=== PATIENT | male | born 1995 | race Caucasian/White ===

== ENCOUNTER 2019-08-13 19:56 | Emergency (ER) | payer OTHER ==
[~2019-08-13] VITALS: Ht 175.2 cm; Wt 101.6 kg
[~2019-08-13 19:56] MED LIST: AMOXICILLIN500 MG PO; ATARAX25 MG PO; CLINDAMYCIN150 MG PO; PREDNISONE10 MG PO; VICODIN 5/500 505 MG PO; ZOVIRAX800 MG PO
[2019-08-13 19:58] VITALS: BP 148/70
[2019-08-13] MEDS ORDERED: PREDNISONE50 MG PO (21:26)
== END 2019-08-13 21:48 | disposition home or self-care (01) ==
LOC: ED 19:56
DX: M71.521 Other bursitis, not elsewhere classified, right elbow (principal)

== ENCOUNTER 2023-03-03 13:59 | Emergency (ER) | payer BC ==
[~2023-03-03] VITALS: Ht 175.2 cm; Wt 122.5 kg
[~2023-03-03 13:59] MED LIST changes: +PREDNISONE50 MG PO
[2023-03-03 14:11] VITALS: BP 138/89
[2023-03-03] MEDS ORDERED: VIBRAMYCIN100 MG PO (14:42)
== END 2023-03-03 14:49 | disposition home or self-care (01) ==
LOC: ED 13:59
DX: J02.9 Acute pharyngitis, unspecified (principal); R21 Rash and other nonspecific skin eruption

== ENCOUNTER → 2023-06-18 | Outpatient (CLI) | payer BC ==
[~2023-06-18] MED LIST changes: +VIBRAMYCIN100 MG PO
[2023-06-18 08:52] LABS: HEMATOCRIT 44.2 % (42.0-52.0); MEAN CELL VOLUME 89.5 fl (80.0-94.0); MEAN CORPUSCULAR HGB 29.6 pg (27.0-31.0); MEAN PLATELET VOLUME 9.6 fl (9.6-12.3); RED BLOOD COUNT 4.94 10*6/uL (4.50-5.90); RED CELL DISTRI WIDTH 11.9 % (0-14.5); WHITE BLOOD COUNT 10.8 10*3/uL (4.8-10.8)
[2023-06-18 09:24] LABS: ALKALINE PHOSPHATASE 90 U/L (46-116); BUN 10 mg/dl (9-23); CHLORIDE 106 mmol/L (98-107); CHOLESTEROL 210 mg/dL (<200); LDL CHOLESTEROL 153 mg/dL (9-159); POTASSIUM 4.4 mmol/L (3.4-5.1); SGPT/ALT 43 U/L (10-49); TOTAL PROTEIN 7.9 gm/dL (6.0-8.0); TRIGLYCERIDES 108 mg/dl (<150)
== END | disposition home or self-care (01) ==
LOC: LAB 08:22
PROVIDERS: ATTEND Family Medicine
DX: Z13.220 Encounter for screening for lipoid disorders (principal); E55.9 Vitamin D deficiency, unspecified; R53.83 Other fatigue